=== PATIENT | male | born 1950 | race Caucasian/White ===

== ENCOUNTER 2018-11-02 10:15 | Emergency (ER) | payer OTHER ==
[~2018-11-02] VITALS: Ht 170.2 cm; Wt 93.0 kg
[2018-11-02 10:26] VITALS: BP_SYST 155
[2018-11-02] MEDS ORDERED: FINA5TAB3 PO (11:00)
[2018-11-02] MEDS ORDERED: OMEP20CA10 PO (11:02)
[2018-11-02] MEDS ORDERED: ASPI-1153 PO (11:02)
[2018-11-02] MEDS ORDERED: ENAL20TA70 PO (11:02)
[2018-11-02] MEDS ORDERED: LORazepam 1 MG TABLET PO ONE (11:15)
[2018-11-02 11:37] LABS: HEMATOCRIT 46.8 % (36-54); HEMOGLOBIN 15.7 g/dL (14.0-18.0); LYMPHOCYTES % (AUTO) 9.7 % (20.5-51.5); MEAN CORPUSCULAR HEMOGLOBIN 28 pg (27-31); MEAN CORPUSCULAR HGB CONC 34 % (32-36); MEAN CORPUSCULAR VOLUME 83 fL (79.0-98.0); NEUTROPHILS % (AUTO) 82.5 % (40.0-70.0); PLATELET COUNT (AUTO) 145 K/uL (130-430); RED BLOOD CELL COUNT(AUTO) 5.62 MIL/uL (4.2-6.2); RED CELL DISTRIBUTION WIDTH 14.3 % (9.0-15.0); WHITE BLOOD COUNT (AUTO) 8.2 K/uL (4.8-10.8)
[2018-11-02 11:38] LABS: BASOPHILS % (AUTO) 0.5 % (0.0-2.0); CALCIUM 10.3 mg/dL (8.4-11.0); CREATININE 0.75 mg/dL (0.55-1.30); EOSINOPHILS % (AUTO) 0.3 % (0.0-4.0); LYMPHOCYTES # (AUTO) 0.8 K/uL (1.0-5.5); MONOCYTES # (AUTO) 0.6 K/uL (0.0-1.0); NEUTROPHILS # (AUTO) 6.8 K/uL (1.8-7.7); POTASSIUM 4.4 mmol/L (3.5-5.1)
[2018-11-02 11:43] LABS: ALBUMIN 3.5 g/dL (3.4-4.8); TOTAL BILIRUBIN 0.6 mg/dL (0.0-1.0)
[2018-11-02 12:35] VITALS: BP_SYST 161
== END 2018-11-02 12:35 | disposition home or self-care (01) ==
LOC: SED 10:15
DX: R42 Dizziness and giddiness (principal); I10 Essential (primary) hypertension; F41.9 Anxiety disorder, unspecified; Z79.82 Long term (current) use of aspirin; Z88.1 Allergy status to other antibiotic agents; Z79.899 Other long term (current) drug therapy
CPT/HCPCS: 36415; 71045; 80053; 82550-TC; 83880; 84484; 85025; 93005; 99284

== ENCOUNTER 2019-10-22 20:26 | Emergency (ER) | payer OTHER ==
[~2019-10-22] VITALS: Ht 170.2 cm; Wt 91.2 kg
[2019-10-22 20:26] VITALS: BP_SYST 180
[~2019-10-22 20:26] MED LIST: ASPI-1153 PO; ENAL20TA70 PO; FINA5TAB3 PO; OMEP20CA11 PO
[2019-10-22 22:21] VITALS: BP_SYST 145
== END 2019-10-22 22:21 | disposition home or self-care (01) ==
LOC: SED 20:26
DX: I10 Essential (primary) hypertension (principal); R51 Headache; Z79.899 Other long term (current) drug therapy; Z88.1 Allergy status to other antibiotic agents; Z88.0 Allergy status to penicillin
CPT/HCPCS: 70450-TC; 99284

== ENCOUNTER 2021-06-04 11:55 | Emergency (ER) | payer OTHER ==
[~2021-06-04] VITALS: Ht 175.3 cm; Wt 93.0 kg
[~2021-06-04 11:55] MED LIST changes: -ASPI-1153 PO; +ASPI-1393 PO; -OMEP20CA11 PO; +OMEP20CA15 PO
[2021-06-04 12:17] VITALS: BP_SYST 159
[2021-06-04 15:00] LABS: BASOPHILS # (AUTO) 0.1 K/uL (0.0-0.2); BASOPHILS % (AUTO) 0.8 % (0.0-2.0); EOSINOPHILS # (AUTO) 0.2 K/uL (0.0-0.4); HEMATOCRIT 45.2 % (36-54); HEMOGLOBIN 15.3 g/dL (14.0-18.0); LYMPHOCYTES # (AUTO) 1.7 K/uL (1.0-5.5); LYMPHOCYTES % (AUTO) 18.2 % (20.5-51.5); MEAN CORPUSCULAR HEMOGLOBIN 29 pg (27-31); MEAN CORPUSCULAR HGB CONC 34 % (32-36); MEAN CORPUSCULAR VOLUME 87 fL (79.0-98.0); MONOCYTES # (AUTO) 0.6 K/uL (0.0-1.0); MONOCYTES % (AUTO) 6.1 % (1.7-9.3); NEUTROPHILS # (AUTO) 6.7 K/uL (1.8-7.7); NEUTROPHILS % (AUTO) 72.9 % (40.0-70.0); PLATELET COUNT (AUTO) 137 K/uL (130-430); RED BLOOD CELL COUNT(AUTO) 5.21 MIL/uL (4.2-6.2); RED CELL DISTRIBUTION WIDTH 13.6 % (9.0-15.0); WHITE BLOOD COUNT (AUTO) 9.2 K/uL (4.8-10.8)
[2021-06-04 15:09] LABS: ANION GAP 4 (5-15); CHLORIDE 104 mmol/L (98-107); CREATININE 0.91 mg/dL (0.55-1.30); GLUCOSE 93 mg/dL (70-99); POTASSIUM 4.5 mmol/L (3.5-5.1); SODIUM SERUM 137 mmol/L (136-145); UREA NITROGEN, BLOOD 9 mg/dL (8-21)
[2021-06-04 15:14] LABS: ALANINE AMINOTRANSFERASE 28 U/L (12-78); ALBUMIN 3.5 g/dL (3.4-4.8); ASPARTATE AMINOTRANSFERASE 22 U/L (10-37); TOTAL BILIRUBIN 0.8 mg/dL (0.0-1.0)
[2021-06-04 15:20] LABS: BILIRUBIN,URINE NEGATIVE (NEGATIVE); BLOOD, URINE NEGATIVE (NEGATIVE); CLARITY/URINE CLEAR (CLEAR); COLOR,URINE YELLOW (YELLOW); GLUCOSE,URINE NEGATIVE (NEGATIVE); KETONES,URINE NEGATIVE (NEGATIVE); LEUKOCYTE ESTERASE ,URINE NEGATIVE (NEGATIVE); NITRITE, URINE NEGATIVE (NEGATIVE); PH,URINE 6.5 (5.0-8.0); PROTEIN URINE NEGATIVE (NEGATIVE); UROBILINOGEN,URINE 0.2 (0.2-1.0)
[2021-06-04 16:53] VITALS: BP_SYST 144
== END 2021-06-04 16:49 | disposition home or self-care (01) ==
LOC: SED 11:55
DX: I10 Essential (primary) hypertension (principal); Z88.8 Allergy status to other drugs, medicaments and biological substances; Z79.899 Other long term (current) drug therapy
CPT/HCPCS: 36415; 80053; 81003; 85025; 93005; 99284